=== PATIENT | female | born 1980 | race Caucasian/White ===

== ENCOUNTER 2023-08-09 14:56 | Emergency (ER) | payer SELFPAY ==
[2023-08-09 15:00] VITALS: BP 155/88; PULSE 61; RESP 16; TEMP 36.7; O2SAT 97; BMI 25.8
--- NOTE | 2023-08-09 15:13 | XR_ITS ---
WS: [id number] XR elbow LT min 3V* [id number] REASON FOR EXAM: fall/trauma FINDINGS: Horizontal fracture through the ulnar coronoid with minimal comminution and displacement. Less than 50% of the coronoid is involved. This abnormality may be associated with elbow dislocation however no other bone or joint abnormality is identified. IMPRESSION: Left elbow fracture as above.
--- NOTE | 2023-08-09 16:08 | ED_ITS ---
HPI - Extremity Injury (Upper) General: Chief Complaint: Extremity Injury, Upper Stated Complaint: left arm pain Time Seen by Provider: 08/09/23 15:13 Source: patient Mode of arrival: ambulatory Limitations: no limitations History of Present Illness: Patient is a 43-year-old female presents to ED today for evaluation of a left elbow injury that she sustained just prior to arrival after slipping on ice and landing onto the left arm. She reports all of her discomfort to the left elbow. She has no other complaints or injuries at this time. She denies numbness, tingling, loss of sensation to the arm. She is reporting swelling to the joint. She denies striking her head or LOC. No neck or back pain. MD complaint: injury to: left and elbow Onset (ago): hour(s) Other Extremity Injury: Left: elbow Other injuries: none Place: home Severity: severe Severity scale (1-10): 10 Relieving factors: immobilization Exacerbating factors: movement of extremity Context: fall and direct blow Associated symptoms: Reports no associated symptoms; Denies neck pain or weakness in extremities Review of Systems Musc: Reports: joint pain (L elbow), joint swelling (L elbow) and limited range of motion (L elbow); Denies: neck pain, back pain, extremity pain or extremity swelling Neuro: Denies: headache(s), numbness in extremities, weakness in extremities or sensory changes [facility] ED Female Reproductive History: Date of last menstrual period: 07/20/23 Physical Exam Const: COMMON NORMALS: average body habitus, patient oriented x3, no limitations, healthy appearing, alert and well nourished GENERAL APPEARANCE: cooperative and in distress (appears uncomfortable; holding elbow) HENMT: COMMON NORMALS: normocephalic and atraumatic HEAD & SCALP: normal to inspection, normocephalic and atraumatic Neck/C-Spine: CERVICAL SPINE: Yes cervical ROM normal, No pain with cervical ROM and No Cervical spine tenderness Back/Pelvis: COMMON NORMALS: thoracic and lumbar spine normal to inspection Extremity: GENERAL: Yes normal exam except as noted LEFT UPPER EXTREMITY: Yes elbow joint (significant swelling/edema L elbow) Left elbow: Yes ROM (held in flexion; cannot extend or further flex secondary to pain) and Yes neurovascular exam (normal) Neuro: COMMON NORMALS: patient oriented x3, moves all extremities, no focal motor deficits and no sensory deficits noted SENSORIUM/ORIENTATION: Yes alert Skin: COMMON NORMALS: no rashes or lesions noted GENERAL SKIN EXAM: no rashes or lesions noted TRAUMA: no lacerations or abrasions Course Vital Signs: Vital signs: Vital Signs Temperature 98.0 F 08/09/23 15:00 Pulse Rate 61 08/09/23 15:00 Respiratory Rate 16 08/09/23 15:00 Blood Pressure 155/88 08/09/23 15:00 Pulse Oximetry 97 08/09/23 15:00 Oxygen Delivery Me thod Room Air 08/09/23 15:00 MDM - Extremity Injury (Upper) Medical Decision Making XR shows a ulnar coronoid fracture. Reviewed with Dr. Cline. Will place in posterior elbow splint, sling, and have her follow-up with orthopedics. All radiology interpretation(s) finalized by discharge Discharge Plan Discharge Patient Disposition: Home Clinical Impression: Fracture of coronoid process of left ulna Qualifiers: Encounter type: initial encounter Fracture type: closed Fracture alignment: displaced Qualified Code(s): S52.042A - Displaced fracture of coronoid process of left ulna, initial encounter for closed fracture Condition: Stable Prescriptions: New hydrocodone-acetaminophen 5-325 mg tablet 1 tab PO .q 4-6 PRN (Reason: pain) Qty: 20 0RF Discharge Orders: Discharge ED (Routine); Ordered 08/09/23 Ordered By: Emma Burk Patient Instructions: Elbow Fracture (DC), Opioid Safety, Pain Management Activity Restrictions/Additional Instructions: You need to stay in your splint at all times until your follow-up appointment with orthopedics. Case management should reach out to you later this week to help set you up with this follow-up appointment. You may ice elbow joint to help with swelling. I have E scripted pain medications to the pharmacy of your choice on file. Coding Level of Care Code ED Automobile Seat Cover Installer for Cecilia Mcpherson
[2023-08-09 16:28] VITALS: RESP 16; O2SAT 96
[2023-08-09] MEDS: morphine 4 mg/mL SDV 1 mL IM (16:28)
--- NOTE | 2023-08-11 16:35 | DCPLANNER ---
Addendum entered by Dex Petersen 08/16/23 11:30: Patient called on 08/16/23 at 1130 am stating she has not heard anything from ortho. I looked at messages and there was not a message sent to ortho. I re-sent message to ortho on 08/16/23 at 1131 am. Ortho clinic should be contacting patient soon. Original Note: Message sent to Ortho for a follow up displaced ulnar coronoid fracture-
== END 2023-08-09 17:08 | disposition home or self-care (01) ==
PROVIDERS: Emergency Provider Physician Assistant
DX: S52.042A Displaced fracture of coronoid process of left ulna, initial encounter for closed fracture (principal); W00.0XXA Fall on same level due to ice and snow, initial encounter
CPT/HCPCS: 29125; 73080; 96372; 99284; J2270

== ENCOUNTER 2023-08-23 08:47 | Outpatient (CLI) | payer SELFPAY ==
--- NOTE | 2023-08-23 10:00 | CT_ITS ---
WS: [id number] CT LEFT ELBOW, NONCONTRAST HISTORY: elbow fx Technique: All CT scans at [facility] use at least one of these dose optimization techniques: automated exposure control; mA and/or kV adjustment per patient size (includes targeted exams where dose is matched to clinical indication); or iterative reconstruction. DLP: 85.36 mGy.cm COMPARISON: Radiograph 08/09/2023 Acute fracture involves a large portion of the coronoid process. There is an avulsion fracture of the coronoid tip by approximately 2.4 mm from the body of the coronoid. Fracture does extend i nto the articulation between the humerus and the ulna. No loose bodies are identified. No additional fractures. The radial head appears intact. There is soft tissue edema surrounding the elbow. Extent of the joint effusion is difficult to determ ine. IMPRESSION: Minimally displaced fracture involving the tip of the coronoid process. Coronoid tip is by 2.4 mm from the body. No additional fractures are identified.
== END 2023-08-23 08:48 | disposition home or self-care (01) ==
LOC: RAD 08:48
PROVIDERS: Visit Provider Orthopaedic Surgery
DX: S52.042A Displaced fracture of coronoid process of left ulna, initial encounter for closed fracture (principal); X58.XXXA Exposure to other specified factors, initial encounter
CPT/HCPCS: 73200

== ENCOUNTER → 2023-09-10 08:27 | Outpatient (BNVA) | payer SELFPAY | PROVIDERS: Visit Provider Orthopaedic Surgery | DX: S52.045A Nondisplaced fracture of coronoid process of left ulna, initial encounter for closed fracture; X58.XXXA Exposure to other specified factors, initial encounter | CPT/HCPCS: 73080 ==

== ENCOUNTER → 2023-09-23 10:40 | Outpatient (BNVA) | payer SELFPAY | PROVIDERS: Visit Provider Orthopaedic Surgery | DX: S52.045D Nondisplaced fracture of coronoid process of left ulna, subsequent encounter for closed fracture with routine healing; X58.XXXD Exposure to other specified factors, subsequent encounter | CPT/HCPCS: 73080 ==

== ENCOUNTER 2023-09-30 08:57 | Outpatient (RCR) | payer SELFPAY | END 2023-10-17 23:59 | disposition home or self-care (01) | LOC: SOT 08:57 | PROVIDERS: Visit Provider Orthopaedic Surgery | DX: S42.402D Unspecified fracture of lower end of left humerus, subsequent encounter for fracture with routine healing (principal); X58.XXXD Exposure to other specified factors, subsequent encounter | CPT/HCPCS: 97110; 97165 ==

== ENCOUNTER → 2023-11-02 08:07 | Outpatient (BNVA) | payer SELFPAY | PROVIDERS: Visit Provider Orthopaedic Surgery | DX: S52.045D Nondisplaced fracture of coronoid process of left ulna, subsequent encounter for closed fracture with routine healing (principal); W00.0XXD Fall on same level due to ice and snow, subsequent encounter | CPT/HCPCS: 73080 ==

== ENCOUNTER → 2024-06-28 12:49 | Outpatient (BNVA) | payer OTHER, SELFPAY | DX: J02.9 Acute pharyngitis, unspecified (principal) | CPT/HCPCS: 87071; 87880 ==

== ENCOUNTER 2024-08-26 23:18 | Emergency (ER) | payer OTHER, SELFPAY ==
[2024-08-26 23:28] VITALS: BP 145/92; PULSE 60; RESP 16; TEMP 36.9; O2SAT 98; BMI 25.0
[2024-08-27] VITALS (13 sets, daily range): BP systolic 114–149; BP diastolic 53–84; PULSE 56–66; RESP 16; O2SAT 91–99
[2024-08-27 00:44] LABS: Basophils # 0.1 10^3/uL (0.0-0.1); Basophils % 0.6 %; Eosinophils # 0.2 10^3/uL (0.0-0.8); Eosinophils % 1.9 %; Hematocrit 46.9 % (36-47); Lymphocytes # 3.8 10^3/uL (0.8-4.8); Lymphocytes % 37.6 %; Mean Corpuscular HGB Conc 34.1 g/dL (30-55); Mean Corpuscular Hemoglobin 32.5 pg (27-33); Mean Corpuscular Volume 95.1 fl (85-98); Mean Platelet Volume 9.3 fL (7.4-10.4); Monocytes # 0.7 10^3/uL (0.2-0.9); Monocytes % 7.1 %; Neutrophils # 5.29 10^3/uL (1.8-7.7); Neutrophils % 52.5 %; Nucleated Red Blood Cells % 0 %; Platelet Count 316 10^3/cmm (157-399); Red Blood Count 4.93 10^6/uL (3.85-5.65); Red Cell Distribution Width 12.6 % (12.1-15.1); White Blood Count 10.06 10^3/uL (3.29-11.43)
[2024-08-27 01:07] LABS: Alanine Aminotransferase 17 U/L (0-33); Albumin Level 4.4 g/dL (3.5-5.2); Alkaline Phosphatase 89 U/L (35-105); Anion Gap 14.7 (5-19); Aspartate Amino Transferase 18 U/L (0-32); Blood Urea Nitrogen 7 mg/dL (6-20); Calcium 9.3 mg/dL (8.5-10.5); Carbon Dioxide 25 mmol/L (22-29); Chloride 102 mmol/L (98-107); Creatinine Clr Calc Pharmacy 103.1379; Globulin 3.4 g/dL (1.3-4.6); Glomerular Filtration Rate 90.9 mL/min (90-130); Glucose 100 mg/dL (65-115); Osmolality Calculated 284 mOsm/kg (285-295); Potassium 3.7 mmol/L (3.5-5.1); Sodium 138 mmol/L (136-145); Total Bilirubin 0.4 mg/dL (0.15-1.2); Total Protein 7.8 g/dL (6.6-8.7)
[2024-08-27 05:13] LABS: Bilirubin Urine Negative (Negative); Blood Urine Negative (Negative); Glucose Urine UA Negative (Normal); Ketones Urine Negative (Negative); Leukocyte Esterase Urine Trace (Negative); Nitrate Urine Negative (Negative); Protein Urine Negative (Negative); Specific Gravity, Urine 1.008 (1.005-1.030); Urine Appearance Clear (CLEAR); Urine Color Yellow (Yellow); pH Urine 5.5 (5-7)
[2024-08-27 05:18] LABS: Add Urine Microscopic? YES; Bacteria Urine None Seen /hpf; Hyaline Casts Urine 0-4 /lpf; RBC Urine 0-2 /hpf (0-2); Squamous Epithelial Cell Urine 0-5 /hpf (0-5); WBC Urine 0-5 /hpf (0-5)
--- NOTE | 2024-08-27 06:23 | USR_ITS ---
PROCEDURE INFORMATION: Exam: US Abdomen, Limited; Right Upper Quadrant Exam date and time: 08/27/2024 6:45 AM Age: 44 years old Clinical indication: Right upper quadrant abdominal pain. TECHNIQUE: Imaging protocol: Real time ultrasound of the abdomen with image documentation. Limited exam focused on the right upper quadrant. COMPARISON: No relevant prior studies available. FINDINGS: The hepatic parenchyma is echogenic. No biliary ductal dilatation. The common bile duct measures 0.4 cm. Cholelithiasis with mild gallbladder wall thickening. The right kidney measures 9 cm. No suspicious mass or hydronephrosis. The pancreas is partially obscurred by overlying bowel gas. The visualized pancreas is unremarkable. US/US gall bladder [id number] IMPRESSION: 1. Cholelithiasis with mild gallbladder wall thickening. The sonographic Alaniz sign was not reported. This could reflect early acute cholecystitis. Correlate clinically. 2. The hepatic parenchyma is echogenic; query hepatic steatosis.
[2024-08-27 06:35] LABS: HCG, Serum Qual Negative (Negative)
--- NOTE | 2024-08-27 06:43 | ED_ITS ---
HPI - Abdominal Pain 2 General: Chief Complaint: Abdominal Pain Stated Complaint: Gallblader Pain Time Seen by Provider: 08/27/24 06:03 History of Present Illness: This patient is a 44 year old presenting with abdominal pain, diarrhea, vomiting. She says that she was told 9 years ago that she needed to have her gallbladder removed but her insurance wouldn't cover it. Since then she has had episodes of similar symptoms that she attributes to her gallbladder. This episode has been the worst and has been ongoing for 3 weeks. Her notes that her breath has been bad for the past 3 weeks as well. She notes dark stools for the past week. She has vomiting after she eats. Her pain is described as pressure in the epigastric area and she also has pain on the right side of her upper/mid back. Nothing seems to make the symptoms better. Eating makes them worse. She is not having any urinary symptoms. No documented fever but she does feel cold all the time. She denies alcohol or marijuana use. She does smoke. She does not take any prescription medications. She has not tried anything over the counter other than some jamal seltzer which does help for a while. Her surgical history includes bilateral tubal ligation and a surgery for an ovarian cyst. Related Data Previous Rx's ?Medication ?Instructions ?Recorded cetirizine 10 mg tablet 10 mg PO DAILY #30 tabs 06/18 08/11 fluticasone propionate 50 2 spray intranasal DAILY #16 grams 06/28/24 mcg/actuation nasal spray,suspension (Flonase Allergy Relief) amoxicillin 875 mg-potassium 1 tab PO BID #20 tabs 04/12 clavulanate 125 mg tablet ondansetron 4 mg disintegrating 4 mg PO Q6H PRN nausea and 08/27/24 tablet vomiting #14 tabs oxycodone 5 mg tablet 5 mg PO Q6H PRN pain, severe #14 08/27/24 tabs Allergies Allergy/AdvReac Type Severity Reaction Status Date / Time No Known Allergies Allergy Verified 08/28/24 17:02 PFS ED 2 PFSH: Social History Smoking and tobacco/nicotine status: current every day tobacco/nicotine user Second hand smoke exposure: Yes Alcohol intake: current Alcohol intake frequency: holidays/special occasions only Physical Exam 2 Const: COMMON NORMALS: no acute distress, patient oriented x3, no limitations and alert GENERAL APPEARANCE: cooperative HENMT: HEAD & SCALP: normal to inspection FACE & SINUS: normal facial exam Eye: GENERAL EYE: appearance normal, both eyes and all related structures Neck/C-Spine: COMMON NORMALS: supple, no meningeal signs and no JVD Chest: COMMONS NORMALS: normal inspection of the chest Resp: COMMON NORMALS: normal respiratory effort, No use of accessory muscles and clear to auscultation bilaterally AUSCULTATION: clear to auscultation bilaterally Cardio: COMMON NORMALS: no JVD, regular rate, regular rhythm and No murmurs present (Cardio) RATE: regular rate RHYTHM: regular rhythm GI: PALPATION: Yes Tenderness to palpation present (GI) Details: RUQ and other (epigastric), Yes Guarding due to palpation present (GI), No Hepatomegaly present and No Rebound tenderness present Back/Pelvis: COMMON NORMALS: thoracic and lumbar spine normal to inspection Extremity: COMMON NORMALS: normal to inspection Neuro: COMMON NORMALS: patient oriented x3, moves all extremities, no focal motor deficits and no sensory deficits noted SENSORIUM/ORIENTATION: Yes alert MENINGEAL SIGNS: Yes no meningeal signs Psych: COMMON NORMALS: mental status grossly normal, cooperative and normal affect Skin: COMMON NORMALS: no rashes or lesions noted and turgor normal GENERAL SKIN EXAM: no rashes or lesions noted and turgor normal Course 2 Vital Signs: Vital signs: Vital Signs Temperature 98.5 F 08/26/24 23:28 Pulse Rate 66 08/27/24 08:26 Respiratory Rate 16 08/27/24 07:18 Blood Pressure 129/75 08/27/24 08:26 Pulse Oximetry 96 08/27/24 08:26 Oxygen Delivery Me thod Room Air 08/26/24 23:28 MDM - Abdominal Pain Medical Decision Making History of gallbladder problems. Symptoms today consistent with that. RUQ tenderness on exam. Normal WBC and LFTs. Normal CBD. Slightly thickened wall on US. Discussed with Dr. Echeverria - oral antibiotics and office follow up for outpatientsurgery. Discussed return precautions. Lab Data 08/27/24 00:35 08/27/24 00:35 Labs/Radiology: Radiology Impressions Gallbladder Ultrasound 08/27/24 06:23 IMPRESSION: 1. Cholelithiasis with mild gallbladder wall thickening. The sonographic Alaniz sign was not reported. This could reflect early acute cholecystitis. Correlate clinically. 2. The hepatic parenchyma is echogenic; query hepatic steatosis. Laboratory Results WBC 10.06 10^3/uL (3.29-11.43) 08/27/24 00:35 Corrected WBC Cancelled 08/26/24 00:03 RBC 4.93 10^6/uL (3.85-5.65) 08/27/24 00:35 Hgb 16.00 g/dL (11.27-16.99) 08/27/24 00:35 Hct 46.9 % (36-47) 08/27/24 00:35 MCV 95.1 fl (85-98) 08/27/24 00:35 MCH 32.5 pg (27-33) 08/27/24 00:35 MCHC 34.1 g/dL (30-55) 08/27/24 00:35 RDW 12.6 % (12.1-15.1) 08/27/24 00:35 Plt Count 316 10^3/cmm (157-399) 08/27/24 00:35 MPV 9.3 fL (7.4-10.4) 08/27/24 00:35 Gran % Cancelled 08/26/24 00:03 Neut % (Auto) 52.5 % 08/27/24 00:35 Lymph % (Auto) 37.6 % 08/27/24 00:35 [place] % (Auto) 7.1 % 08/27/24 00:35 Eos % (Auto) 1.9 % 08/27/24 00:35 Baso % (Auto) 0.6 % 08/27/24 00:35 Neut # (Auto) 5.29 10^3/uL (1.8-7.7) 08/27/24 00:35 Lymph # (Auto) 3.8 10^3/uL (0.8-4.8) 08/27/24 00:35 [place] # (Auto) 0.7 10^3/uL (0.2-0.9) 08/27/24 00:35 Eos # (Auto) 0.2 10^3/uL (0.0-0.8) 08/27/24 00:35 Baso # (Auto) 0.1 10^3/uL (0.0-0.1) 08/27/24 00:35 Absolute Gran (auto) Cancelled 08/26/24 00:03 Nucleated RBC % (auto) 0 % 08/27/24 00:35 Nucleated RBCs # 0.0 /100WBC 08/27/24 00:35 Sodium 138 mmol/L (136-145) 08/27/24 00:35 Potassium 3.7 mmol/L (3.5-5.1) 08/27/24 00:35 Chloride 102 mmol/L (98-107) 08/27/24 00:35 Carbon Dioxide 25 mmol/L (22-29) 08/27/24 00:35 Anion Gap 14.7 (5-19) 08/27/24 00:35 BUN 7 mg/dL (6-20) 08/27/24 00:35 Creatinine 0.7 mg/dL (0.5-0.9) 08/27/24 00:35 GFR Calculation 90.9 mL/min (90-130) 08/27/24 00:35 Glucose 100 mg/dL (65-115) 08/27/24 00:35 Calculated Osmolality 284 mOsm/kg (285-295) L 08/27/24 00:35 Calcium 9.3 mg/dL (8.5-10.5) 08/27/24 00:35 Total Bilirubin 0.4 mg/dL (0.15-1.2) 08/27/24 00:35 Direct Bilirubin 0.20 mg/dL (0.00-0.30) 08/27/24 00:35 AST 18 U/L (0-32) 08/27/24 00:35 ALT 17 U/L (0-33) 08/27/24 00:35 Alkaline Phosphatase 89 U/L (35-105) 08/27/24 00:35 C-Reactive Protein 3.0 mg/L (0.0-4.9) 08/27/24 00:35 Total Protein 7.8 g/dL (6.6-8.7) 08/27/24 00:35 Albumin 4.4 g/dL (3.5-5.2) 08/27/24 00:35 Globulin 3.4 g/dL (1.3-4.6) 08/27/24 00:35 Lipase 20 U/L (13-60) 08/27/24 00:35 HCG, Qual Negative (Negative) 08/27/24 00:35 Urine Color Yellow (Yellow) 08/27/24 05:03 Urine Appearance Clear (CLEAR) 08/27/24 05:03 Urine pH 5.5 (5-7) 08/27/24 05:03 Ur Specific [place] 1.008 (1.005-1.030) 08/27/24 05:03 Urine Protein Negative (Negative) 08/27/24 05:03 Urine Glucose (UA) Negative (Normal) 08/27/24 05:03 Urine Ketones Negative (Negative) 08/27/24 05:03 Urine Blood Negative (Negative) 08/27/24 05:03 Urine Nitrate Negative (Negative) 08/27/24 05:03 Urine Bilirubin Negative (Negative) 08/27/24 05:03 Urine Urobilinogen 1.0 mg/dL (Negative) 08/27/24 05:03 Ur Leukocyte Esterase Trace (Negative) A 08/27/24 05:03 Urine RBC 0-2 /hpf (0-2) 08/27/24 05:03 Urine WBC 0-5 /hpf (0-5) 08/27/24 05:03 Ur Squamous Epith Cells 0-5 /hpf (0-5) 08/27/24 05:03 Amorphous Sediment Not Reportable 08/27/24 05:03 Urine Bacteria None seen /hpf (NONE) 08/27/24 05:03 Hyaline Casts 0-4 /lpf H 08/27/24 05:03 All radiology interpretation(s) finalized by discharge Discharge Plan Discharge Patient Disposition: Home Clinical Impression: Biliary colic Cholelithiasis Qualifiers: Cholelithiasis location: other site Biliary obstruction: without biliary obstruction Qualified Code(s): K80.80 - Other cholelithiasis without obstruction Condition: Stable Prescriptions: New ondansetron 4 mg tablet,disintegrating 4 mg PO Q6H PRN (Reason: nausea and vomiting) Qty: 14 0RF oxycodone 5 mg tablet 5 mg PO Q6H PRN (Reason: pain, severe) Qty: 14 0RF amoxicillin-pot clavulanate 875-125 mg tablet 1 tab PO BID Qty: 20 0RF No Action cetirizine 10 mg tablet 10 mg PO DAILY Qty: 30 0RF fluticasone propionate [Flonase Allergy Relief] 50 mcg/actuation spray,suspension 2 spray intranasal DAILY Qty: 16 0RF Rx Instructions: administer into each nostril Discharge Orders: Discharge ED (Routine); Ordered 08/27/24 Ordered By: Matilda Lenz Referrals: Josh Echeverria DO [Physician] - (Follow up this week - call Wednesday morning for appointment) Discharge Diet: Low Fat and Clear Liquid Discharge Activity: Increase activity as tolerated Patient Instructions: Abdominal Pain (ED), Opioid Safety, Pain Management Activity Restrictions/Additional Instructions: Take a clear liquid diet today, gradually advance to a low fat diet as tolerated. Return to the ED if fever, unable to tolerate fluids or uncontrollable pain. Print Language: Kinyarwanda Coding Level of Care Code ED Administrative Support Manager for Cecilia Mcpherson
[2024-08-27 06:46] LABS: Lipase 20 U/L (13-60)
[2024-08-27] MEDS: sodium chloride 0.9% 1,000 ML 999 ML IV (07:17)
[2024-08-27] MEDS: famotidine 20 mg/2 mL INJ 40 MG IVP (07:18)
[2024-08-27] MEDS: morphine 4 mg/mL SDV 1 mL IVP (07:18)
[2024-08-27] MEDS: ondansetron 2 mg/ML SDV 2 mL 4 MG IVP (07:18)
== END 2024-08-27 08:36 | disposition home or self-care (01) ==
PROVIDERS: Emergency Medicine; Emergency Provider Emergency Medicine
DX: R19.7 Diarrhea, unspecified (principal); K80.70 Calculus of gallbladder and bile duct without cholecystitis without obstruction; Z72.0 Tobacco use
CPT/HCPCS: 36415; 76705; 80048; 80076; 81001; 83690; 84703; 85025; 86140; 96361; 96374; 96375; 99285; J2270; J2405; J3490; J7030

== ENCOUNTER 2024-08-28 16:53 | Emergency (ER) | payer OTHER, SELFPAY ==
[2024-08-28 16:57] VITALS: BP 129/84; PULSE 70; RESP 16; TEMP 36.8; O2SAT 97
[2024-08-28 18:37] LABS: Basophils % 0.4 %; Eosinophils # 0.1 10^3/uL (0.0-0.8); Eosinophils % 0.7 %; Lymphocytes # 2.4 10^3/uL (0.8-4.8); Lymphocytes % 28.4 %; Mean Corpuscular HGB Conc 33.7 g/dL (30-55); Mean Corpuscular Hemoglobin 32.5 pg (27-33); Mean Corpuscular Volume 96.4 fl (85-98); Mean Platelet Volume 9.4 fL (7.4-10.4); Monocytes # 0.5 10^3/uL (0.2-0.9); Nucleated Red Blood Cells % 0 %; Platelet Count 269 10^3/cmm (157-399); Red Blood Count 4.46 10^6/uL (3.85-5.65); Red Cell Distribution Width 12.4 % (12.1-15.1); White Blood Count 8.43 10^3/uL (3.29-11.43)
[2024-08-28 18:38] VITALS: BP 128/82; PULSE 60; RESP 14; O2SAT 95
--- NOTE | 2024-08-28 18:39 | ECG_ITS ---
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 Measurements Intervals [place] Rate: 51 P: 65 MS: 184 QRS: 74 QRSD: 96 T: 66 QT: 462 QTc: 426 Interpretive Statements SINUS BRADYCARDIA POSSIBLE LEFT ATRIAL ENLARGEMENT [-0.1mV P-WAVE IN V1/V2] SEPTAL MYOCARDIAL INFARCTION , OF INDETERMINATE AGE [40+ ms Q WAVE IN V1/V2] No previous ECG available for comparison Electronically Signed On 08-30-2024 18:28:32 [employer] SUPERVISOR by Jumana Michaels M.D. [email or web address]
[2024-08-28] MEDS: metoclopramide 5 mg/mL SDV 2 mL 10 MG IVP (18:47)
[2024-08-28] MEDS: HYDROMORPHONE HCL 0.5 MG/0.5 ML INJ 1 MG IVP (18:48)
[2024-08-28 18:58] LABS: HCG, Serum Qual Negative (Negative)
[2024-08-28 18:59] LABS: Alanine Aminotransferase 17 U/L (0-33); Albumin Level 4.3 g/dL (3.5-5.2); Alkaline Phosphatase 79 U/L (35-105); Anion Gap 14.7 (5-19); Aspartate Amino Transferase 17 U/L (0-32); Blood Urea Nitrogen 10 mg/dL (6-20); Calcium 9.1 mg/dL (8.5-10.5); Carbon Dioxide 26 mmol/L (22-29); Chloride 101 mmol/L (98-107); Creatinine Clr Calc Pharmacy 120.3275; Globulin 2.7 g/dL (1.3-4.6); Glomerular Filtration Rate 108.6 mL/min (90-130); Glucose 91 mg/dL (65-115); Lipase 12 U/L (13-60); Osmolality Calculated 285 mOsm/kg (285-295); Potassium 3.7 mmol/L (3.5-5.1); Sodium 138 mmol/L (136-145); Total Bilirubin 0.7 mg/dL (0.15-1.2)
--- NOTE | 2024-08-28 18:59 | ED_ITS ---
HPI - Abdominal Pain 2 General: Chief Complaint: Abdominal Pain Stated Complaint: adm. pain , vomiting Time Seen by Provider: 08/28/24 18:19 Source: patient Mode of arrival: ambulatory Limitations: no limitations History of Present Illness: Patient is a 44-year-old female who presents the emergency department for the second time in the past few days for continued right upper quadrant and epigastric abdominal pain. She was here yesterday, she had labs drawn and had an ultrasound of her gallbladder that showed cholelithiasis with possible early acute cholecystitis. She was discharged on antibiotics, nausea medication, and pain medication but states that her symptoms have not improved and she is now unable to keep down any food or drink. She states that she is set to have appointment with surgery on to discuss taking her gallbladder out. Overall states that there has been no change in her pain, just that it is not getting better. She has not reported any fevers. No other new symptoms to report at this time. Her vitals are stable. She notes that overall this pain began Wednesday. She denies any cardiac history. MD elicited complaint: abdominal pain Pertinent past history: other (Biliary colic, cholelithiasis diagnosed yesterday) Onset (ago): day(s) Pain Consistency: constant Location: Epigastric and RUQ Severity: severe Quality: stabbing and sharp Radiation: back Exacerbating factors: eating Relieving factors: nothing Associated Symptoms: Reports nausea and vomiting; Denies bloating, change in stool character, chills, constipation, diarrhea, dysuria, fever(s) and hematochezia Treatments prior to arrival: other (Zofran, Augmentin, oxycodone) Related Data Date of Last Menstrual Period: 08/02/24 Previous Rx's ?Medication ?Instructions ?Recorded cetirizine 10 mg tablet 10 mg PO DAILY #30 tabs 06/18 08/11 fluticasone propionate 50 2 spray intranasal DAILY #16 grams 06/28/24 mcg/actuation nasal spray,suspension (Flonase Allergy Relief) amoxicillin 875 mg-potassium 1 tab PO BID #20 tabs 04/12 clavulanate 125 mg tablet ondansetron 4 mg disintegrating 4 mg PO Q6H PRN nausea and 08/27/24 tablet vomiting #14 tabs oxycodone 5 mg tablet 5 mg PO Q6H PRN pain, severe #14 08/27/24 tabs Allergies Allergy/AdvReac Type Severity Reaction Status Date / Time No Known Allergies Allergy Verified 08/28/24 17:02 Review of Systems 2 General: Reports: 10 or more systems reviewed and unremarkable except in HPI and below Const: Reports: change in appetite; Denies: fever(s), chills, change in weight or diaphoresis ENMT: Denies: throat pain or hoarseness Card: Denies: chest pain, palpitations or lightheadedness Resp: Denies: dyspnea, productive cough or wheezing GI: Reports: abdominal pain, nausea and vomiting; Denies: diarrhea, constipation, bloating, change in stool character or hematochezia : Denies: flank pain, difficulty voiding, dysuria, urinary frequency or urinary urgency Musc: Reports: back pain; Denies: neck pain Skin/Breast: Denies: rash or new lesions Neuro: Denies: headache(s) or dizziness PFSH ED 2 PFSH: Social History Smoking and tobacco/nicotine status: current every day tobacco/nicotine user Second hand smoke exposure: Yes Alcohol intake: current Alcohol intake frequency: holidays/special occasions only Female Reproductive History: Date of last menstrual period: 08/02/24 Physical Exam 2 Const: COMMON NORMALS: average body habitus, patient oriented x3, no limitations, alert and well nourished GENERAL APPEARANCE: cooperative and comfortable ORIENTATION/CONSCIOUSNESS: Yes awake OTHER: Uncomfortable appearing HENMT: COMMON NORMALS: normocephalic, atraumatic, hearing grossly normal bilaterally, external ears normal, Normal external nose present, Normal nasal mucous membranes and turbinates present and moist oral mucous membranes HEAD & SCALP: normocephalic and atraumatic NOSE: Normal external nose present and Normal nasal mucous membranes and turbinates present EXTERNAL EAR: Yes external ears normal Eye: COMMON NORMALS: Equal, round and reactive pupils present, EOMs intact bilaterally, conjunctivae normal and normal visual mackay by confrontation C ONJUNCTIVA: Yes conjunctivae normal PUPIL: Yes Equal, round and reactive pupils present Neck/C-Spine: COMMON NORMALS: full ROM, supple, no meningeal signs and no JVD Resp: COMMON NORMALS: normal respiratory effort, No retractions, No use of accessory muscles and clear to auscultation bilaterally AUSCULTATION: clear to auscultation bilaterally, no crackles, no rales, no rhonchi and no wheezes Cardio: COMMON NORMALS: no JVD, regular rate, regular rhythm, S1 normal heart sound present, S2 normal heart sound present, No gallops present (Cardio), No clicks present (Cardio), No murmurs present (Cardio), No rub (Cardio) and Peripheral pulses 2+ throughout RATE: regular rate RHYTHM: regular rhythm HEART SOUNDS: S1 normal heart sound present and S2 normal heart sound present PERIPHERAL PULSES: Peripheral pulses 2+ throughout GI: COMMON NORMALS: Normal to inspection, nondistended, normoactive bowel sounds present, Soft to palpation, No hepatosplenomegaly present and no masses AUSCULTATION: Yes normoactive bowel sounds PALPATION: Yes Soft to palpation, No Guarding due to palpation present (GI), No Rigid due to palpation and Yes No hepatosplenomegaly present RECTAL EXAM: deferred OTHER: Positive Alaniz sign. Reproducible tenderness to palpation to right upper quadrant as well as to the epigastrium. No abdominal bruising or bloating. : COMMON NORMALS: Yes no CVA tenderness BLADDER/KIDNEY EXAM: Yes no CVA tenderness Back/Pelvis: COMMON NORMALS: no CVA tenderness Extremity: COMMON NORMALS: normal to inspection and full ROM Neuro: COMMON NORMALS: patient oriented x3, moves all extremities, no focal motor deficits and no sensory deficits noted SENSORIUM/ORIENTATION: Yes alert MENINGEAL SIGNS: Yes no meningeal signs Psych: COMMON NORMALS: mental status grossly normal, cooperative and speech normal SPEECH: Yes normal speech Skin: COMMON NORMALS: no rashes or lesions noted GENERAL SKIN EXAM: no rashes or lesions noted Course 2 Vital Signs: Vital signs: Vital Signs Temperature 98.2 F 08/28/24 16:57 Pulse Rate 55 L 08/28/24 20:46 Respiratory Rate 16 08/28/24 20:07 Blood Pressure 109/61 08/28/24 20:46 Pulse Oximetry 98 08/28/24 20:46 Oxygen Delivery Me thod Room Air 08/28/24 20:46 MDM - Abdominal Pain Medical Decision Making This patient presented for the second time in 2 days for continued right upper quadrant epigastric pain. Yesterday was seen diagnosed with biliary colic and cholelithiasis, potential signs of a early acute cholecystitis and general surgery have been consulted. Patient was then started on antibiotics, pain meds, nausea meds and called this morning and schedule appointment for . States that she is here due to continued pain and inability to keep down food or drink. Rechecked her CBC, CMP, and lipase all of which either show improvement or no change. Urinalysis was not overtly infected, and swab for COVID flu RSV was negative. Being that she was just scanned with ultrasound yesterday, and no worsening of labs I do not feel that imaging warranted at this time. She was normal with her vitals, was given Dilaudid here along with Reglan and fluids and informed to follow-up with surgeon on as already planned. In the meantime if she has any worsening or uncontrollable fevers to return back to the ED for reevaluation. She agrees with this plan and verbalized understanding. Lab Data 08/28/24 17:33 08/28/24 17:33 Labs/Radiology: Laboratory Results WBC 8.43 10^3/uL (3.29-11.43) 08/28/24 17: RBC 4.46 10^6/uL (3.85-5.65) 08/28/24 17: Hgb 14.50 g/dL (11.27-16.99) 08/28/24 17: Hct 43.0 % (36-47) 08/28/24 17: MCV 96.4 fl (85-98) 08/28/24 17: MCH 32.5 pg (27-33) 08/28/24 17: MCHC 33.7 g/dL (30-55) 08/28/24 17:33 RDW 12.4 % (12.1-15.1) 08/28/24 17: Plt Count 269 10^3/cmm (157-399) 08/28/24 17: MPV 9.4 fL (7.4-10.4) 08/28/24 17: Neut % (Auto) 64.0 % 08/28/24 17: Lymph % (Auto) 28.4 % 08/28/24 17: Collier % (Auto) 6.0 % 08/28/24 17: Eos % (Auto) 0.7 % 08/28/24 17:33 Baso % (Auto) 0.4 % 08/28/24 17:33 Neut # (Auto) 5.40 10^3/uL (1.8-7.7) 08/28/24 17:33 Lymph # (Auto) 2.4 10^3/uL (0.8-4.8) 08/28/24 17:33 Collier # (Auto) 0.5 10^3/uL (0.2-0.9) 08/28/24 17:33 Eos # (Auto) 0.1 10^3/uL (0.0-0.8) 08/28/24 17:33 Baso # (Auto) 0.0 10^3/uL (0.0-0.1) 08/28/24 17:33 Nucleated RBC % (auto) 0 % 08/28/24 17: Nucleated RBCs # 0.0 /100WBC 08/28/24 17:33 Sodium 138 mmol/L (136-145) 08/28/24 17:33 Potassium 3.7 mmol/L (3.5-5.1) 08/28/24 17:33 Chloride 101 mmol/L (98-107) 08/28/24 17:33 Carbon Dioxide 26 mmol/L (22-29) 08/28/24 17:33 Anion Gap 14.7 (5-19) 08/28/24 17:33 BUN 10 mg/dL (6-20) 08/28/24 17:33 Creatinine 0.6 mg/dL (0.5-0.9) 08/28/24 17:33 GFR Calculation 108.6 mL/min (90-130) 08/28/24 17:33 Glucose 91 mg/dL (65-115) 08/28/24 17:33 Calculated Osmolality 285 mOsm/kg (285-295) 08/28/24 17:33 Calcium 9.1 mg/dL (8.5-10.5) 08/28/24 17:33 Total Bilirubin 0.7 mg/dL (0.15-1.2) 08/28/24 17:33 AST 17 U/L (0-32) 08/28/24 17:33 ALT 17 U/L (0-33) 08/28/24 17:33 Alkaline Phosphatase 79 U/L (35-105) 08/28/24 17:33 Troponin T Baseline < 6 ng/L (0-10) 08/28/24 20:08 Total Protein 7.0 g/dL (6.6-8.7) 08/28/24 17:33 Albumin 4.3 g/dL (3.5-5.2) 08/28/24 17:33 Globulin 2.7 g/dL (1.3-4.6) 08/28/24 17: Lipase 12 U/L (13-60) L 08/28/24 17:33 HCG, Qual Negative (Negative) 08/28/24 17:33 Urine Color Dark yellow (Yellow) A 08/28/24 19:55 Urine Appearance Clear (CLEAR) 08/28/24 19: Urine pH 6.0 (5-7) 08/28/24 19:55 Ur Specific [place] 1.022 (1.005-1.030) 08/28/24 19: Urine Protein Negative (Negative) 08/28/24 19: Urine Glucose (UA) Negative (Normal) 08/28/24 19: Urine Ketones 4+ (Negative) 08/28/24 19: Urine Blood Negative (Negative) 08/28/24 19: Urine Nitrate Negative (Negative) 08/28/24 19: Urine Bilirubin 1+ (Negative) H 08/28/24 19: Urine Urobilinogen 4.0 mg/dL (Negative) H 08/28/24 19:55 Ur Leukocyte Esterase 1+ (Negative) A 08/28/24 19:55 Urine RBC 3-5 /hpf (0-2) 08/28/24 19:55 Urine WBC 6-10 /hpf (0-5) 08/28/24 19:55 Ur Squamous Epith Cells 6-10 /hpf (0-5) 08/28/24 19:55 Amorphous Sediment Not Reportable 08/28/24 19:55 Urine Bacteria None seen /hpf (NONE) 08/28/24 19:55 Hyaline Casts 0.81 /lpf 08/28/24 19:55 Coronavirus (PCR) Negative (Negative) 08/28/24 18:42 Influenza A (PCR) Negative (Negative) 08/28/24 18:42 Influenza Type B (PCR) Negative (Negative) 08/28/24 18:42 RSV (PCR) Negative (Negative) 08/28/24 18:42 No radiology studies performed this visit EKG Data EKG 1: I personally reviewed and interpreted this EKG as follows: EKG interpretation date: 08/28/24 EKG interpretation time: 18:40 Prior EKG tracings: not available for review Interpretation: Reviewed with physician. Sinus bradycardia. Rate 51. No acute STEMI. No previous for comparison. Discharge Plan Discharge Patient Disposition: Home Clinical Impression: Biliary colic Cholelithiasis Qualifiers: Cholelithiasis location: other site Biliary obstruction: without biliary obstruction Qualified Code(s): K80.80 - Other cholelithiasis without obstruction Condition: Stable Prescriptions: No Action cetirizine 10 mg tablet 10 mg PO DAILY Qty: 30 0RF fluticasone propionate [Flonase Allergy Relief] 50 mcg/actuation spray,suspension 2 spray intranasal DAILY Qty: 16 0RF Rx Instructions: administer into each nostril ondansetron 4 mg tablet,disintegrating 4 mg PO Q6H PRN (Reason: nausea and vomiting) Qty: 14 0RF oxycodone 5 mg tablet 5 mg PO Q6H PRN (Reason: pain, severe) Qty: 14 0RF amoxicillin-pot clavulanate 875-125 mg tablet 1 tab PO BID Qty: 20 0RF Discharge Orders: Discharge ED (Routine); Ordered 08/28/24 Ordered By: Feliberto Bolaños Patient Instructions: Abdominal Pain (ED), Opioid Safety, Pain Management Activity Restrictions/Additional Instructions: Please follow-up with general surgery on as planned. If you develop any worsening of pain, uncontrollable fevers, or other concerns please return to the ED as we discussed. Continue taking pain medications at home. Continue nausea medication and antibiotics. Print Language: Azeri Coding Level of Care Code ED Esol Teacher for Cecilia Mcpherson
[2024-08-28 19:25] LABS: Covid PCR NEGATIVE (Negative); Influenza A NEGATIVE (Negative); Influenza B NEGATIVE (Negative); Respiratory Syncytial Virus Ce NEGATIVE (Negative)
[2024-08-28] MEDS: ondansetron 2 mg/ML SDV 2 mL 8 MG IVP (20:03)
[2024-08-28 20:05] LABS: Bilirubin Urine 1+ (Negative); Blood Urine Negative (Negative); Glucose Urine UA Negative (Normal); Ketones Urine 4+ (Negative); Leukocyte Esterase Urine 1+ (Negative); Nitrate Urine Negative (Negative); Protein Urine Negative (Negative); Specific Gravity, Urine 1.022 (1.005-1.030); Urine Appearance Clear (CLEAR); Urine Color Dark Yellow (Yellow)
[2024-08-28 20:07] VITALS: BP 106/82; PULSE 60; RESP 16; O2SAT 93
[2024-08-28 20:10] LABS: Add Urine Microscopic? YES; Bacteria Urine None Seen /hpf; Hyaline Casts Urine 0.81 /lpf
--- NOTE | 2024-08-28 20:14 | ECG_ITS ---
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 Measurements Intervals [place] Rate: 48 P: 68 GA: 181 QRS: 70 QRSD: 88 T: 68 QT: 455 QTc: 410 Interpretive Statements SINUS BRADYCARDIA SEPTAL MYOCARDIAL INFARCTION , OF INDETERMINATE AGE [40+ ms Q WAVE IN V1/V2] MODERATE T-WAVE ABNORMALITY, CONSIDER ANTEROLATERAL ISCHEMIA [-0.1+ mV T-WAVE IN V3-V6] Compared to ECG 08/28/2024 18:39:57 T-wave abnormality now present Possible ischemia now present Myocardial infarct finding still present Electronically Signed On 08-30-2024 18:28:54 GLUE BONE CRUSHER by Jumana Michaels M.D. [email or web address]
[2024-08-28 20:33] LABS: Troponin(5th) Baseline < 6 ng/L (0-10)
[2024-08-28 20:46] VITALS: BP 109/61; PULSE 55; O2SAT 98
[2024-08-28] MEDS: sodium chloride 0.9% 1,000 ML 999 ML IV (20:52)
[2024-08-28 22:06] VITALS: BP 121/59; PULSE 59; O2SAT 96
== END 2024-08-28 22:04 | disposition home or self-care (01) ==
PROVIDERS: Emergency Medicine; Emergency Provider Physician Assistant
DX: K80.50 Calculus of bile duct without cholangitis or cholecystitis without obstruction (principal); K80.20 Calculus of gallbladder without cholecystitis without obstruction; Z11.52 Encounter for screening for COVID-19; Z72.0 Tobacco use
CPT/HCPCS: 36415; 80053; 81001; 83690; 84484; 84703; 85025; 87637; 93005; 96361; 96374; 96375; 99284; J1171; J2405; J2765; J7030

== ENCOUNTER 2024-09-13 07:35 | Day surgery (SDC) | payer OTHER, SELFPAY ==
[2024-09-13] VITALS (10 sets, daily range): BP systolic 108–132; BP diastolic 65–85; PULSE 67–75; RESP 16–18; TEMP 36.1–36.6; O2SAT 97–100; BMI 24.7
--- NOTE | 2024-09-13 07:58 | W.PM.OPSUD ---
Surgery/Procedure H&P Update DATE OF PROCEDURE: September 13, 2024 DATE H&P PERFORMED: 09/01/24 H&P UPDATE INFORMATION: I have reviewed H&P completed within last 30 days, I have examined patient prior to procedure and No changes to prior documentation PLANNED PROCEDURE: Operation Date: 09/13/24 09:00 Proposed Procedures p Laparoscopic Cholecystectomy 33838, K80.50(Not Applicable) - Frandy Jones MD
--- NOTE | 2024-09-13 08:01 | P.ANESASSM_ITS ---
Pre-Anesthetic Assessment Height/Weight: Height 1.68 m Weight 69.4 kg Temp Pulse Resp BP Pulse Ox O2 Del Method 97.8 F 68 18 123/85 99 Room Air 09/13/24 07:45 09/13/24 07:45 09/13/24 07:45 09/13/24 07:45 09/13/24 07:45 09/13/24 07:45 Operation Date: 09/13/24 09:00 Proposed Procedures p Laparoscopic Cholecystectomy 19786, K80.50(Not Applicable) - Frandy Jones MD Familial anesthetic complications: None Was Beta Ivory taken within 24 hours: N/A Was Clonidine taken within 24 hours: N/A Last intake: > 8 hrs Social Tobacco and No alcohol Exam alert, oriented x 3, clear to auscultation bilaterally and regular rate & rhythm Airway Mallampati: Class II Dentition: chipped and other (missing) Metabolic Told she had borderline low Thyroid a few years ago, denies any symptoms Anesthetic Plan ASA status: 2 Anesthesia: General Risk of > 500 ml blood loss (7ml/kg in children): No Medications/Allergies Home Medications ?Medication ?Instructions ?Recorded ?Confirmed ?Last Taken ?Type ondansetron 4 mg disintegrating 4 mg PO Q6H PRN nausea and 08/27/24 09/12/24 Unknown Rx tablet vomiting #14 tabs Allergies Allergy/AdvReac Type Severity Reaction Status Date / Time No Known Allergies Allergy Verified 08/28/24 17:02 [facility] Anesthesia Social History Smoking and tobacco/nicotine status: current every day tobacco/nicotine user Second hand smoke exposure: Yes Alcohol intake: current Alcohol intake frequency: holidays/special occasions only Data Anesthesia Cardiac Studies: No Data to Display
[2024-09-13] MEDS: sodium chloride 0.9% 1,000 ML 30 ML IV (08:03)
[2024-09-13] MEDS: scopolamine 1 mg PATCH 1 PATCH TRANSDERMA (08:09)
[2024-09-13 08:15] LABS: OR HCG Qualitative Urine Negative (Negative)
[2024-09-13] MEDS: ceFAZolin 2,000 mg SDV 2000 MG IVP (08:29)
[2024-09-13] MEDS: lidocaine-epi 1% 20 mL INJ INJECTION (08:34)
--- NOTE | 2024-09-13 09:15 | PM.OP ---
Operative Report Date of procedure: September 13, 2024 Pre-op diagnosis: Symptomatic cholelithiasis Post-op diagnosis: Chronic cholecystitis Post-op findings: Gallbladder filled with large stones. Changes consistent with chronic cholecystitis Procedure done: Laparoscopic cholecystectomy Implants: N/A Specimens removed/disposition: Gallbladder sent to pathology Pathology: Gallbladder Surgeon: Frandy Jones MD Wearing Apparel Presser: N/A Estimated blood loss (mL): 10 Complications: N/A Findings: Gallbladder filled with stones. Changes consistent with chronic cholecystitis. Condition: stable Disposition: same day Brief History: 44-year-old female who presented with symptomatic cholelithiasis. Discussed risk and benefits and patient agreed to proceed with laparoscopic cholecystectomy possible open. Procedure: I discussed the risks and benefits of laparoscopic cholecystectomy, and obtained consent prior to proceeding to the operating room. SCDs were utilized. Prophylactic antibiotics were administered. General anesthesia was induced. The patient was placed supine, and she was prepped and draped in the usual sterile fashion. Insufflation to 15mmHg was achieved using a Veress needle at Campbell's point. A 5mm optiview trocar was placed at the umbilicus under direct visualization. The left upper quadrant was inspected, and no injuries were noted. Two 5mm ports were placed in the right upper quadrant, and a 12mm working port was placed in the epigastrium. The gallbladder was then retracted cephalad through the lateral RUQ port, and the infundibulum grabbed through the medial RUQ port and retracted laterally. The gallbladder was inflammed and thus consistent with chronic cholecystitis. The gallbladder was also filled with large stones. I proceeded to score the peritoneum over the medial aspect of the gallbladder using a laparoscopic hook with electrocautery. Then the infundibulum was retracted medially in order to score the peritoneum over the lateral aspect of the galbladder. Using a combination of energy and blunt dissection with the [place] and a Kittner dissector, the cystic artery and cystic duct were dissected. I then proceeded to dissect the cystic plate in order to to achieve the critical view of safety. The cystic artery and the cystic duct were clipped three times (leaving two clips on the proximal end of both structures). I then proceeded to dissect the gallbladder off the liver using hook electrocautery. The specimen was placed in an endocatch bag and retrieved from the abdomen through the port on the epigastrium. I confirmed adequate hemostasis and the absence of any bile leaks. Prior to ending the laparoscopic portion, I examined the rest of the abdomen and did not find any abnormalities or injuries. The abdomen was then desufflated, and the 12mm port in the epigastrium was closed using 0 vicryl on a UR needle after irrigating copiously. Skin was closed using 4-0 monocryl and surgical glue. The patient woke up from anesthesia and transferred to PACU without any complications.
[2024-09-13] MEDS: oxyCODONE-APAP 5-325 mg Tablet 1 TAB PO (10:00)
--- NOTE | 2024-09-13 10:30 | ANE.PACU2 ---
Inpatient post-anesthesia follow up: Airway intact: Yes Vital signs: Temperature 97.6 F Pulse Rate 72 Respiratory Rate 18 Blood Pressure 127/83 Pulse Oximetry 99 Oxygen Delivery Me thod Room Air Oxygen Flow Rate 8 Fraction of Inspir ed Oxygen Hydration adequate: Yes Nausea and vomiting: No Pain level: 1 Mental status: Baseline
== END 2024-09-13 10:35 | disposition home or self-care (01) ==
PROVIDERS: Visit Provider Student in an Organized Health Care Education/Training Program
PROC: 0FT44ZZ Resection of Gallbladder, Percutaneous Endoscopic Approach (ICD-10-PCS; CPT 47562; principal; 2024-09-13 09:00)
DX: K80.10 Calculus of gallbladder with chronic cholecystitis without obstruction (principal); K08.409 Partial loss of teeth, unspecified cause, unspecified class; F17.210 Nicotine dependence, cigarettes, uncomplicated
CPT/HCPCS: 47562; 81025; 88304; A4216; J0690; J1100; J1885; J2250; J2405; J2704; J2710; J3010; J3490; J7030